=== PATIENT | female | born 1955 | race Caucasian/White ===

== ENCOUNTER → 2018-12-26 | Outpatient (CLI) | payer MEDICARE, OTHER ==
--- NOTE | 2018-12-26 16:07 | KCIC ---
LUMBAR SPINE 2-3V History: Spondylolisthesis. Back pain. Comparison: CT October 09, 2018. Findings: Grade 1 anterolisthesis L4 on L5 approximately 5 mm due to facet arthropathy. Unchanged alignment with flexion and extension. Mild retrolisthesis L2 on L3 and L3 on L4, unchanged with flexion and extension. Multilevel degenerative disc changes with disc height loss and osteophytes most prominent moderate at L1-L2. Lumbar facet arthropathy. Soft tissues unremarkable. Impression: 1. Grade 1 anterolisthesis of L4 on L5, unchanged in flexion and extension. 2. Mild retrolisthesis L2 on L3 and L3 on L4, unchanged in flexion and extension. 3. Multilevel lumbar spondylosis most prominent at L1-L2. Electronically signed by: Raheel Olson DO (12/26/2018 4:05 PM) [id number]
== END | disposition home or self-care (01) ==
LOC: KCIC 14:52
PROVIDERS: ATTEND Neurological Surgery
DX: M47.816 Spondylosis without myelopathy or radiculopathy, lumbar region (principal); M12.88 Other specific arthropathies, not elsewhere classified, other specified site; M25.78 Osteophyte, vertebrae
CPT/HCPCS: 72100

== ENCOUNTER → 2019-01-16 | Outpatient (CLI) | payer MEDICARE, OTHER ==
[~2019-01-16] MED LIST: IOHEXOL 180 MG/ML 10 ML VIAL. ONE; LEVO100T PO; LISI10TA2 PO; methylPREDNISolone ACETATE 40 MG/ML VIAL. ONE; methylPREDNISolone ACETATE 80 MG/ML VIAL. ONE
--- NOTE | 2019-01-17 06:01 | PAIN ---
DATE OF SERVICE: 01/16/2019 INITIAL CONSULTATION FOR PAIN CLINIC CHIEF COMPLAINT: Neck and bilateral upper extremity pain. HISTORY OF PRESENT ILLNESS: This is a 64-year-old female who presents with history of pain in the base of the neck, bilateral shoulders and upper extremity for many years, worse over the past year. No specific injury or action she is aware of, but significant pain in the base of the neck and shoulders, worsening with activity, stretching and reaching over her head, also weightbearing and lifting items. The patient reports it is worse at night, numbness in both the hands and tingling in the right hand. The patient reports it is across the neck and shoulders as well as a constant pain at times and worse with activity. The patient reports that it is on and off, awakens her from sleep but not every night. The patient reports it does not affect her bowel or bladder control but at times it can affect her ability to walk. She generally feels more pain after exercising or walking in the shoulder and arm as well. The patient has had epidural injections in the past, physical therapy, chiropractic treatment as well as exercise, all these have been helpful over the past 5 years and the epidural injections were in the lumbar distribution, however. The patient has taken Aleve and Tylenol, which does decrease the pain by about 40%-50%. The patient reports no overt loss of motor function but significant fatigability in both the upper extremities, again more on the right than the left with fatigue. The patient did have an MRI scan of the cervical spine dated 11/21/2018 showing multilevel disk disease, facet arthrosis in multiple variable levels, recess and neural foraminal stenosis, high grade neural foraminal stenosis on the right at C4-C5 and C5-C6. The patient describes the pain as constant and aching, radiating with numbness and tingling in the hands as well. The patient rates her disability rating from 0-10, 10 being the worst, as a 4-6 with family and home responsibilities, 6-7 with recreation, 1-2 with social activity, 3-4 with sexual behavior, 4-6 with occupation and 0 with self-care and life support activities. PAST MEDICAL HISTORY: Significant for arthritis, hypertension, hypothyroidism and history of breast cancer as well as lymphoma. PAST SURGICAL HISTORY: Previous surgeries include hysterectomy, right breast mastectomy and reconstruction, lumbar diskectomy in 2012, right foot surgery and a D and C in the past. CURRENT MEDICATIONS: Include glucosamine, vitamin D, calcium, multivitamin, lisinopril, Synthroid as well as Aleve [id number]. ALLERGIES: THE PATIENT IS ALLERGIC TO SULFA. FAMILY HISTORY: Significant for kidney disease, thyroid cancer and breast cancer. SOCIAL HISTORY: The patient does not drink alcohol; does not smoke and does not use any illegal, illicit or recreational drugs. She is , lives with her spouse, lives locally in [place], [place]. REVIEW OF SYSTEMS: The patient's review of systems is positive for those items mentioned in history of present illness. All systems reviewed and otherwise negative. It is complete, full and well documented on the patient's chart. PHYSICAL EXAMINATION: VITAL SIGNS: The patient's blood pressure 141/100, pulse is 62, respirations 18 and temperature 98.3 degrees Fahrenheit. Height is 5 feet 8 inches and weight is 178 pounds. GENERAL: The patient is awake, alert, oriented, appropriate and very pleasant demeanor. HEENT: Head shows normocephalic and atraumatic. The patient is wearing eyeglasses. Extraocular movements are intact and symmetrical. Oral cavity: Mucous membranes moist and pink. Dentition is intact. NECK: Shows anterior throat supple without palpable lymphadenopathy noted. Swallow reflex symmetrical. CHEST: Shows normal on inspection. Breath sounds are clear to auscultation bilaterally. HEART: Shows S1 and S2 clear. No murmurs auscultated. ABDOMEN: Soft, nontender and nondistended. No palpable organomegaly is noted. No rebound or guarding demonstrated. BACK: Shows spine grossly in the midline. Normal appearing cervical lordotic curvature, thoracic kyphotic curvature and some mild flattening of lumbar lordotic curvature with a well-healed surgical scar noted in the lumbar distribution. Cervical paraspinous musculature shows symmetrical on inspection, on palpation shows some moderate tenderness diffusely without radiation. The patient's neck shows good rotational motion of the cervical spine, both laterally as well as extension and flexion without significant tenderness. No tenderness over the spinous processes. There is some moderate tenderness with palpation in the inferior cervical paraspinous and superior medial trapezius musculature bilaterally, slightly more on the right than the left but present bilaterally without trigger points, without radiation. The patient has good rotational motion of the cervical spine, both laterally greater than 45 degrees right and left, closer to 90 degrees, full extension, full forward flexion without limitation or significant pain reported. EXTREMITIES: The patient's upper extremities show deep tendon reflexes are 2+ in the biceps and triceps tendons. Motor exam is strong with preparation supervisor canning strength rated at 5/5 preparation supervisor canning, bicep and tricep flexion and are symmetrical. Peripheral pulses are 2+ radial distribution. No peripheral edema is noted. Shoulder shrug is strong and intact without loss of strength on resistance as is abduction of the shoulders 90 degrees with some minor pain in the right side with resistance, but no loss of strength. This is in the shoulder and the trapezius as well. The patient's skin shows warm and dry, good turgor. No edema. No sores, rashes or bruising. IMPRESSION: 1. This is a 64-year-old female with long history of pain in the base of the neck and shoulders, upper extremities in a radicular fashion, slightly worse on the right than the left but present bilaterally. 2. Arthritis. 3. Hypertension. 4. History of breast cancer and lymphoma. PLAN: Options were discussed with the patient including conservative medical managements, physical therapies and interventional techniques. She would like to pursue interventional techniques. We discussed a cervical epidural steroid injection using description as well as anatomical models to describe the procedure. Risks were then discussed including, but not limited to bleeding, infection, possibility of epidural hematoma and subsequent neurological compromise, dural puncture, headaches, spinal cord and/or nerve damage, side effects of steroid medication and poor results regarding pain control. The patient understands and wished to proceed. The patient will return to the clinic in approximately 2 weeks for followup, was counseled as to return appointment, activity level and side effects to be aware of. DIAGNOSES: Cervical radiculopathy with cervical degenerative disk disease and cervical spinal stenosis. PROCEDURE: Cervical epidural steroid injection, translaminar approach, C6-C7 level using C-arm fluoroscopic guidance under sterile prep and drape using local anesthetic. MEDICATION INJECTED: A total of 120 mg Depo-Medrol plus 5 mL of preservative-free normal saline and 2 mL of contrast. CONDITION AT DISCHARGE: Stable. The patient tolerated the procedure well and had no complications. MAXIMUS RAMÍREZ MD DR: BEVERLY/judi JOB#: [id number] / [id number] GENOVEVA Gill MD
== END ==
LOC: PNCL 09:34
PROVIDERS: ATTEND Anesthesiology
DX: M50.123 Cervical disc disorder at C6-C7 level with radiculopathy (principal); M48.02 Spinal stenosis, cervical region; I10 Essential (primary) hypertension; M19.90 Unspecified osteoarthritis, unspecified site; E03.9 Hypothyroidism, unspecified; Z85.3 Personal history of malignant neoplasm of breast; Z85.72 Personal history of non-Hodgkin lymphomas; Z88.2 Allergy status to sulfonamides; Z79.899 Other long term (current) drug therapy; Z90.710 Acquired absence of both cervix and uterus; Z90.11 Acquired absence of right breast and nipple; Z98.890 Other specified postprocedural states
CPT/HCPCS: 62321; J1030; J1040; Q9965

== ENCOUNTER → 2019-02-06 | Outpatient (CLI) | payer MEDICARE, OTHER ==
--- NOTE | 2019-02-06 09:14 | PN ---
DATE: 02/06/2019 PROGRESS NOTE FOR PAIN CLINIC DIAGNOSES: Cervical radiculopathy with cervical degenerative disk disease, cervical spinal stenosis. HISTORY OF PRESENT ILLNESS: The patient is a 64-year-old female who returns for followup status post cervical epidural steroid injection x 1. The patient reports about 50% improvement overall with significant decrease in the numbness and tingling in her left arm and hand, still some tingling in the fingers, but the arm is doing much better. She has better range of motion with her cervical spine, especially turning to the left. The patient reports that it still awakens her from sleep at night occasionally, but it is much better than it was. The patient reports no new motor or sensory deficits, worse with activity, reaching above her head with the left arm or carrying items, repetitive motion of the left hand and arm. The patient rates her pain at 2-3 on a scale of 10, its worst over the past week 2 on average, 1 at its least and is a 2 today. The patient reports it is aching type, tingling, no new motor or sensory deficits, no new bowel or bladder incontinence or other complaints. PHYSICAL EXAMINATION: VITAL SIGNS: The patient's blood pressure 122/92, pulse 73, respirations 18, temperature 97.3 degrees Fahrenheit, height is 5 feet 8 inches, weight is 178 pounds. GENERAL: The patient is awake, alert, oriented, appropriate, very pleasant demeanor. HEENT: Shows normocephalic, atraumatic. Extraocular movements are intact and symmetrical. Oral cavity: Mucous membranes moist and pink. Dentition is intact. NECK: Shows anterior throat supple without palpable lymphadenopathy noted. Swallow reflex symmetrical. CHEST: Shows normal on inspection. Breath sounds clear to auscultation bilaterally. HEART: Shows S1, S2 clear. No murmurs auscultated. ABDOMEN: Soft, nontender, nondistended. No palpable organomegaly is noted. No rebound or guarding demonstrated. BACK: Shows spine grossly in the midline. Normal appearing thoracic kyphosis and lumbar lordotic curvature. Lumbar paraspinous muscle shows symmetrical on inspection, On palpation shows some moderate tenderness diffusely bilaterally going diffusely without radiation. The patient's neck shows good rotational motion of cervical spine, both laterally greater than 45 degrees, close to 90 degrees, especially with increased range of motion to the left. Good extension and flexion without significant pain reported with full extension and flexion. EXTREMITIES: Upper extremities show deep tendon reflexes 2+ in the biceps and triceps tendons. Motor exam is strong with 5/5 stock feeder strength, bicep and tricep flexion and symmetrical. Peripheral pulses are 2+ radial distribution. No peripheral edema is noted. Options were discussed with the patient. The patient's old chart was reviewed as her current medication regimen updated. Current review of systems updated today as well. We will proceed with a second in a series of cervical epidural steroid injection today with fluoroscopic guidance. Risks were again discussed including, but not limited to bleeding, infection, possibility of epidural hematoma and subsequent neurological compromise, dural puncture, headaches, spinal cord and/or nerve damage, side effects of steroid medication and poor results regarding pain control. The patient understands and wished to proceed. The patient will return to clinic in approximately 2 weeks for followup. She was counseled on return appointment, activity level and side effects to be aware of. DIAGNOSES: Cervical radiculopathy with cervical spinal stenosis and cervical degenerative disk disease. PROCEDURE: Cervical epidural steroid injection, translaminar approach C6-C7 level using C-arm fluoroscopic guidance under sterile prep and drape using local anesthetic. MEDICATION INJECTED: The patient received a total of 120 mg Depo-Medrol plus 5 mL of preservative-free normal saline and 2 mL of contrast. CONDITION AT DISCHARGE: Stable. The patient tolerated procedure well, had no complications. MAXIMUS RAMÍREZ MD DR: BEVERLY/judi JOB#: [id number] / [id number]
== END ==
LOC: PNCL 08:07
PROVIDERS: ATTEND Anesthesiology
DX: M50.123 Cervical disc disorder at C6-C7 level with radiculopathy (principal); M48.02 Spinal stenosis, cervical region
CPT/HCPCS: 62321; J1030; J1040; Q9965

== ENCOUNTER → 2019-02-21 | Outpatient (CLI) | payer MEDICARE, OTHER ==
--- NOTE | 2019-02-21 19:19 | PAIN ---
DATE OF SERVICE: 02/21/2019 PROGRESS NOTE FOR PAIN CLINIC DIAGNOSES: Cervical radiculopathy with cervical spinal stenosis and cervical degenerative disk disease. HISTORY OF PRESENT ILLNESS: The patient is a 64-year-old female who returns for followup status post cervical epidural steroid injection x 2. The patient reports she is doing fairly well with about 30% improvement overall, more improvement about 50% after the first injection, but still, doing well. The patient reports the only thing left is release of aching pain in the base of the neck and shoulders and some tingling in the fourth and fifth fingers bilaterally. The patient reports no new motor or sensory deficits, no new bowel or bladder incontinence or other complaints. The patient reports the pain is a 3 on a scale of 10 at its worst, 2 on average, 2 at its least and is a 2 today. The patient reports it is aching and tight across the shoulders and tingling in the fingers. No new motor or sensory deficits, no new changes, has been increasing her activities at work and at home, sleeping better at night. No new changes. PHYSICAL EXAMINATION: VITAL SIGNS: The patient's blood pressure 128/90, pulse 69, respirations are 18, temperature 97.5 degrees Fahrenheit, height is 5 feet 8 inches, weight is 181 pounds. GENERAL: The patient is awake, alert, oriented, appropriate, very pleasant demeanor. HEENT: Shows normocephalic, atraumatic. Extraocular movements are intact and symmetrical. Oral cavity: Mucous membranes moist and pink. Dentition is intact. NECK: Shows anterior throat supple without palpable lymphadenopathy noted. Swallow reflex symmetrical. CHEST: Shows normal on inspection. Breath sounds are clear to auscultation bilaterally. HEART: Shows S1, S2 clear. No murmurs auscultated. ABDOMEN: Soft, nontender, nondistended. BACK: Shows spine grossly in the midline. Cervical paraspinous muscle shows symmetrical on inspection with normal cervical lordotic curvature with palpation shows some moderate tenderness in the inferior aspect of the cervical paraspinous muscles bilaterally, but only diffusely and only mildly. This is true into the superior medial trapezius without radiation or trigger points. The patient has full rotational motion of cervical spine, both laterally greater than 45 degrees, close to 90 degrees as well as full extension, full forward flexion without significant pain reported. EXTREMITIES: The patient's upper extremities show deep tendon reflexes 2+ in the biceps, triceps tendons. Motor exam is strong with 5/5 delivery man strength, bicep and tricep flexion at 5/5 and equal. Peripheral pulses are 2+ in radial distribution. No peripheral edema is noted bilaterally. Options were discussed with the patient. The patient's old chart was reviewed as her current medication regimen updated. Current review of systems updated today as well. We will proceed with epidural steroid injections third in the series today with fluoroscopic guidance. Risks were again discussed including, but not limited to bleeding, infection, possibility of epidural hematoma, subsequent neurological compromise, dural puncture, headaches, spinal cord and/or nerve damage, side effects of steroid medication and poor results regarding pain control. The patient understands and wished to proceed. The patient will return to clinic in approximately 2 weeks for followup. She was counseled as to return appointment, activity level and side effects to be aware of. DIAGNOSES: Cervical radiculopathy with cervical degenerative disk disease and cervical spinal stenosis. PROCEDURE: Cervical epidural steroid injection, translaminar approach C6-C7 level using C-arm fluoroscopic guidance under sterile prep and drape using local anesthetic. MEDICATION INJECTED: The patient received a total of 120 mg Depo-Medrol plus 5 mL of preservative-free normal saline and 2 mL of contrast. CONDITION AT DISCHARGE: Stable. The patient tolerated procedure well, had no complications. MAXIMUS RAMÍREZ MD DR: BEVERLY/judi JOB#: [id number] / [id number]
== END ==
LOC: PNCL 08:00
PROVIDERS: ATTEND Anesthesiology
DX: M50.123 Cervical disc disorder at C6-C7 level with radiculopathy (principal); M48.02 Spinal stenosis, cervical region
CPT/HCPCS: 62321; J1030; J1040; Q9965